=== PATIENT | female | born 1940 | race Asian ===

== ENCOUNTER 2024-05-09 19:00 | Inpatient (IN) | payer MEDICARE, BC ==
[~2024-05-09] VITALS: Ht 162.6 cm; Wt 54.4 kg
[~2024-05-09 19:00] MED LIST: ALPR1TAB7 PO; ATOR10TA PO; LABE200T5 PO
[2024-05-09 20:17] VITALS: BP 158/90; TEMP 98.5; O2SAT 95
[2024-05-09] MEDS ORDERED: KETO15VI5 IVP (21:20)
[2024-05-09] MEDS ORDERED: ATOR10TA PO (21:20)
[2024-05-09] MEDS ORDERED: HYDR-3980 PO (21:20)
[2024-05-09] MEDS ORDERED: ALPR0.5T8 PO (21:20)
[2024-05-09] MEDS ORDERED: ENOX40DI SQ (21:20)
[2024-05-09] MEDS ORDERED: LABE100T5 PO (21:20)
[2024-05-09] MEDS ORDERED: DOCU100C36 PO (21:20)
[2024-05-09] MEDS ORDERED: ACET325T53 PO (21:20)
[2024-05-09] MEDS ORDERED: REMEDY ESSENTIAL ZINC PASTE 113 GM TOP PRN (22:15)
[2024-05-09] MEDS: HYDROCODONE/APAP 10-325 MG TABLET PO PRN (22:20)
[2024-05-09] MEDS: ALPRAZOLAM 0.5 MG TABLET PO PRN (22:20)
[2024-05-10 05:50] VITALS: BP 148/90; TEMP 98.4; O2SAT 96
[2024-05-10 10:11] VITALS: BP 147/80; TEMP 98.5; O2SAT 95
[2024-05-10] MEDS ORDERED: ALPRAZOLAM 0.5 MG TABLET PO PRN (11:30)
[2024-05-10] MEDS ORDERED: HYDROCODONE/APAP 10-325 MG TABLET PO PRN (12:00)
[2024-05-10] MEDS ORDERED: LABETALOL HCL 100 MG TABLET PO SCH (12:00)
[2024-05-10] MEDS ORDERED: ACETAMINOPHEN 325 MG TABLET-SA PATIENTS-PAIN ONLY PO PRN (12:00)
[2024-05-10] MEDS: FAMOTIDINE 20 MG TABLET PO SCH (12:29)
[2024-05-10] MEDS: LABETALOL HCL 100 MG TABLET PO SCH (12:29)
[2024-05-10] MEDS: ENOXAPARIN SODIUM 40 MG/0.4 ML DISP.SYRIN SQ SCH (12:30)
[2024-05-10] MEDS: KETOROLAC TROMETHAMINE 15 MG INJ IVP PRN (12:40)
[2024-05-10 14:44] VITALS: BP 103/62; TEMP 98.2; O2SAT 94
[2024-05-10] MEDS ORDERED: DOCUSATE SODIUM 100 MG CAPSULE PO SCH (17:00)
[2024-05-10] MEDS ORDERED: hydrALAZINE HCL 25 MG TABLET PO PRN (19:00)
[2024-05-10] MEDS ORDERED: ALBUTEROL SULFATE 1.25 MG/3 ML NEBU NEB PRN (19:00)
[2024-05-10 20:00] VITALS: BP 103/61; TEMP 97.8; O2SAT 95
[2024-05-10] MEDS: ATORVASTATIN 10 MG TABLET PO SCH (21:34)
[2024-05-10] MEDS: ALPRAZOLAM 0.5 MG TABLET PO PRN (21:34)
[2024-05-10] MEDS: TRAMADOL HCL 50 MG TABLET PO PRN (21:36)
[2024-05-10] MEDS: METOPROLOL TARTRATE 25 MG TABLET PO SCH (21:43)
[2024-05-10] MEDS: DOCUSATE SODIUM 100 MG CAPSULE PO SCH (21:43)
[2024-05-10] MEDS: REMEDY ESSENTIAL ZINC PASTE 113 GM TOP SCH (23:18)
[2024-05-10] MEDS: HYDROCODONE/APAP 5-325MG TABLET PO PRN (23:47)
[2024-05-11 06:00] VITALS: BP 139/71; TEMP 98.5; O2SAT 92
[2024-05-11] MEDS ORDERED: ENOXAPARIN SODIUM 40 MG/0.4 ML DISP.SYRIN SQ SCH (09:00)
[2024-05-11] MEDS: MULTIVITAMINS,THERAPEUTIC TABLET PO SCH (09:07)
[2024-05-11] MEDS: ENSURE ENLIVE (VAN) 240 ML LIQUID PO SCH (12:27)
[2024-05-11 15:01] VITALS: BP 140/64; TEMP 98.8; O2SAT 95
[2024-05-11 20:04] VITALS: BP 156/74; TEMP 98.8; O2SAT 95
[2024-05-12 05:30] VITALS: BP 126/74; TEMP 98.5; O2SAT 94
[2024-05-12 15:35] VITALS: BP 135/70; TEMP 97.7; O2SAT 97
[2024-05-12 19:00] VITALS: BP 128/80; TEMP 98.8; O2SAT 96
[2024-05-12 21:06] VITALS: O2SAT 95
[2024-05-13 06:00] VITALS: BP 118/70; TEMP 97.6; O2SAT 95
[2024-05-13 07:24] LABS: BASOPHILS % (AUTO) 0.4 % (0.0-2.0); EOSINOPHILS # (AUTO) 0.5 K/uL (0.0-0.7); EOSINOPHILS % (AUTO) 6.1 % (0.0-7.0); HEMATOCRIT 32.2 % (31.2-41.9); HEMOGLOBIN 10.7 g/dL (10.9-14.3); LYMPHOCYTES % (AUTO) 25.9 % (20.5-51.5); MEAN CORPUSCULAR HEMOGLOBIN 30.8 uug (24.7-32.8); MEAN CORPUSCULAR HGB CONC 33 g/dL (32.3-35.6); MEAN CORPUSCULAR VOLUME 92.3 fL (75.5-95.3); MONOCYTES # (AUTO) 0.7 K/uL (0.1-1.30); MONOCYTES % (AUTO) 8.9 % (0.0-11.0); NEUTROPHILS # (AUTO) 4.6 K/uL (1.8-8.9); NEUTROPHILS % (AUTO) 58.7 % (38.5-71.5); PLATELET COUNT (AUTO) 495 K/uL (179-408); RED BLOOD CELL COUNT(AUTO) 3.48 MIL/uL (3.63-4.92); RED CELL DISTRIBUTION WIDTH 13.3 % (12.3-17.7); WHITE BLOOD COUNT (AUTO) 7.9 K/uL (3.8-11.8)
[2024-05-13 07:31] LABS: DIFFERENTIAL COMMENT 1
[2024-05-13 08:05] LABS: BILIRUBIN,TOTAL 1.4 mg/dL (0.2-1.0); CALCIUM 9.3 mg/dL (8.5-10.1); CREATININE 0.8 mg/dL (0.6-1.3); MAGNESIUM 2.3 mg/dL (1.8-2.4); PHOSPHOROUS 3.7 mg/dL (2.5-4.9); POTASSIUM 3.9 mmol/L (3.5-5.1); TOTAL PROTEIN, SERUM 7.5 g/dL (6.4-8.2)
[2024-05-13 08:25] LABS: THYROID STIMULATING HORMONE 2.276 mIU/mL (0.358-3.740)
[2024-05-13 15:43] VITALS: BP 121/71; TEMP 97.6; O2SAT 95
[2024-05-13 20:00] VITALS: BP 131/81; TEMP 98.1; O2SAT 94
[2024-05-14 06:00] VITALS: BP 119/65; TEMP 97.6; O2SAT 97
[2024-05-14 09:00] VITALS: BP_SYST 103; BP_SYST 126; BP_SYST 92; BP_DIAS 60; BP_DIAS 64; BP_DIAS 66
[2024-05-14 16:00] VITALS: BP 139/66; TEMP 97.6; O2SAT 97
[2024-05-14 20:00] VITALS: TEMP 98.5
[2024-05-15] VITALS: TEMP 98.8
[2024-05-15 04:00] VITALS: TEMP 98.6
[2024-05-15 06:00] VITALS: TEMP 98.7
[2024-05-15 09:00] VITALS: BP_SYST 126; BP_SYST 129; BP_SYST 93; BP_DIAS 63; BP_DIAS 72; BP_DIAS 80
[2024-05-15 15:04] VITALS: BP 125/83; TEMP 98.2; O2SAT 96
[2024-05-15 20:53] VITALS: BP 150/74; TEMP 98.2; O2SAT 97
[2024-05-16] MEDS: MAGNESIUM HYDROXIDE 30 ML LIQUID UDC PO PRN (00:59)
[2024-05-16 06:46] VITALS: BP_SYST 112; BP_SYST 118; BP_DIAS 70; BP_DIAS 76; TEMP 97.8; O2SAT 94
[2024-05-16 08:17] LABS: BASOPHILS # (AUTO) 0.1 K/UL (0.0-0.2); BASOPHILS % (AUTO) 0.8 % (0.0-2.0); EOSINOPHILS # (AUTO) 0.4 K/uL (0.0-0.7); EOSINOPHILS % (AUTO) 5.4 % (0.0-7.0); HEMATOCRIT 32.3 % (31.2-41.9); HEMOGLOBIN 10.8 g/dL (10.9-14.3); LYMPHOCYTES # (AUTO) 1.9 K/uL (0.8-4.8); LYMPHOCYTES % (AUTO) 26.7 % (20.5-51.5); MEAN CORPUSCULAR HEMOGLOBIN 30.9 uug (24.7-32.8); MEAN CORPUSCULAR HGB CONC 33 g/dL (32.3-35.6); MEAN CORPUSCULAR VOLUME 92.5 fL (75.5-95.3); MONOCYTES # (AUTO) 0.7 K/uL (0.1-1.30); MONOCYTES % (AUTO) 9.3 % (0.0-11.0); NEUTROPHILS # (AUTO) 4.2 K/uL (1.8-8.9); NEUTROPHILS % (AUTO) 57.8 % (38.5-71.5); PLATELET COUNT (AUTO) 696 K/uL (179-408); RED BLOOD CELL COUNT(AUTO) 3.49 MIL/uL (3.63-4.92); RED CELL DISTRIBUTION WIDTH 13.2 % (12.3-17.7); WHITE BLOOD COUNT (AUTO) 7.3 K/uL (3.8-11.8)
[2024-05-16 08:30] LABS: DIFFERENTIAL COMMENT 1
[2024-05-16 08:35] LABS: CALCIUM 9.4 mg/dL (8.5-10.1); CARBON DIOXIDE 27 mmol/L (21-32); CHLORIDE 105 mmol/L (98-107); CREATININE 0.7 mg/dL (0.6-1.3); GLUCOSE 98 mg/dL (74-106); MAGNESIUM 2.6 mg/dL (1.8-2.4); POTASSIUM 4.1 mmol/L (3.5-5.1); SODIUM SERUM 143 mmol/L (136-145); UREA NITROGEN, BLOOD 23 mg/dL (7-18)
[2024-05-16 11:38] VITALS: TEMP 98.1
[2024-05-16 12:00] VITALS: BP 123/67; TEMP 98.1; O2SAT 97
[2024-05-16 15:38] VITALS: BP 115/55; TEMP 97.9; O2SAT 98
[2024-05-16 20:00] VITALS: TEMP 98
[2024-05-17 04:00] VITALS: TEMP 98
[2024-05-17 11:00] VITALS: BP 117/65; TEMP 98; O2SAT 96
[2024-05-17 16:17] VITALS: BP 132/63; TEMP 98.3; O2SAT 97
[2024-05-17 20:00] VITALS: BP 120/66; TEMP 99.3; O2SAT 97
[2024-05-17 21:39] VITALS: O2SAT 95
[2024-05-18 06:03] VITALS: BP 126/72; TEMP 98; O2SAT 99
[2024-05-18] MEDS: ACETAMINOPHEN 325 MG TABLET PO PRN (06:18)
[2024-05-18 15:12] VITALS: BP 110/71; TEMP 98.9; O2SAT 97
[2024-05-18 20:00] VITALS: BP 107/60; TEMP 98.4; O2SAT 96
[2024-05-19] VITALS (7 sets, daily range): BP systolic 102–154; BP diastolic 53–68; TEMP 97.7–98.3; O2SAT 95–99
[2024-05-20] VITALS (9 sets, daily range): BP systolic 92–131; BP diastolic 57–75; TEMP 97.8–98.7; O2SAT 93–99
[2024-05-21 06:46] VITALS: BP 119/62; TEMP 97.8; O2SAT 94
[2024-05-21 06:47] VITALS: BP 106/78; TEMP 97.7; O2SAT 95
[2024-05-21 16:58] VITALS: BP 137/66; TEMP 98.1; O2SAT 97
[2024-05-21 19:59] VITALS: O2SAT 96
[2024-05-21 20:00] VITALS: BP 128/58; TEMP 97.9; O2SAT 98
[2024-05-22 06:24] VITALS: BP 134/65; TEMP 97.9; O2SAT 99
[2024-05-22 07:29] LABS: BASOPHILS # (AUTO) 0.1 K/UL (0.0-0.2); BASOPHILS % (AUTO) 1.6 % (0.0-2.0); EOSINOPHILS # (AUTO) 0.1 K/uL (0.0-0.7); EOSINOPHILS % (AUTO) 1.8 % (0.0-7.0); HEMATOCRIT 30.9 % (31.2-41.9); HEMOGLOBIN 10.4 g/dL (10.9-14.3); LYMPHOCYTES # (AUTO) 2.4 K/uL (0.8-4.8); LYMPHOCYTES % (AUTO) 39.2 % (20.5-51.5); MEAN CORPUSCULAR HEMOGLOBIN 30.9 uug (24.7-32.8); MEAN CORPUSCULAR HGB CONC 34 g/dL (32.3-35.6); MEAN CORPUSCULAR VOLUME 91.7 fL (75.5-95.3); MONOCYTES # (AUTO) 0.4 K/uL (0.1-1.30); MONOCYTES % (AUTO) 7.2 % (0.0-11.0); NEUTROPHILS # (AUTO) 3.1 K/uL (1.8-8.9); NEUTROPHILS % (AUTO) 50.2 % (38.5-71.5); PLATELET COUNT (AUTO) 704 K/uL (179-408); RED BLOOD CELL COUNT(AUTO) 3.37 MIL/uL (3.63-4.92); RED CELL DISTRIBUTION WIDTH 13.5 % (12.3-17.7); WHITE BLOOD COUNT (AUTO) 6.1 K/uL (3.8-11.8)
[2024-05-22 07:39] LABS: DIFFERENTIAL COMMENT 1
[2024-05-22 07:56] LABS: ALBUMIN 3.1 g/dL (3.4-5.0); CALCIUM 9.3 mg/dL (8.5-10.1); CREATININE 0.6 mg/dL (0.6-1.3); MAGNESIUM 2.3 mg/dL (1.8-2.4); TOTAL PROTEIN, SERUM 6.9 g/dL (6.4-8.2)
[2024-05-22] MEDS: FLUDROCORTISONE ACETATE 0.1 MG TABLET PO SCH (09:52)
[2024-05-22 15:53] VITALS: BP 113/63; TEMP 98.2; O2SAT 95
[2024-05-22 20:44] VITALS: O2SAT 95
[2024-05-22 21:21] VITALS: TEMP 98.1
[2024-05-23 09:00] VITALS: BP 113/57
== END 2024-05-23 15:00 | disposition home health service (06) | DRG 560 ==
PROVIDERS: ADMIT Physical Medicine & Rehabilitation Pain Medicine; ATTEND Physical Medicine & Rehabilitation Pain Medicine
DX: S72.142D Displaced intertrochanteric fracture of left femur, subsequent encounter for closed fracture with routine healing (principal); D68.59 Other primary thrombophilia; E44.1 Mild protein-calorie malnutrition; E27.40 Unspecified adrenocortical insufficiency; E78.5 Hyperlipidemia, unspecified; I10 Essential (primary) hypertension; Z79.899 Other long term (current) drug therapy; W19.XXXD Unspecified fall, subsequent encounter; D64.9 Anemia, unspecified; E88.09 Other disorders of plasma-protein metabolism, not elsewhere classified; Z79.52 Long term (current) use of systemic steroids; M19.90 Unspecified osteoarthritis, unspecified site
CPT/HCPCS: 36415; 73502; 83550; 83735; 84100; 84443; 85025; 97535-GO-CO; A6209; J1650; J1885